=== PATIENT | female | born 1990 | race Caucasian/White ===

== ENCOUNTER 2016-08-03 13:34 | Emergency (ER) | payer OTHER ==
[~2016-08-03 13:34] MED LIST: AMOXICILLIN PO; BACTRIM DS TABL1 TA1 PO; BACTRIM DS TABL1 TAB PO; FLAGYL PO; FLEXERIL10 MG PO; FLINTSTONES M200 MCG PO; ILOTYCIN1 GM OP; MACROBID100 M1 PO; MACROBID100 MG PO; METRONIDAZOLE PO; NO MEDICATIONS; NORCO1 TAB 10/3 PO; OMEPRAZOLE20 M2 PO; PHENERGAN PO; PHENERGAN12.5 MG PO; PRENATAL1 TA1 PO; PYRIDIUM PO; TYLENOL #3 PO; ZOFRAN ODT4 MG PO; ZOFRAN PO
== END 2016-08-03 14:49 | disposition home or self-care (01) ==
LOC: SED 13:34
DX: H10.33 Unspecified acute conjunctivitis, bilateral (principal)
CPT/HCPCS: 99283

== ENCOUNTER 2016-08-20 16:47 | Emergency (ER) | payer OTHER | END 2016-08-20 17:14 | disposition home or self-care (01) | LOC: SED 16:47 | DX: H10.9 Unspecified conjunctivitis (principal) | CPT/HCPCS: 99282 ==

== ENCOUNTER 2016-09-28 16:12 | Emergency (ER) | payer OTHER | END 2016-09-28 16:44 | disposition home or self-care (01) | LOC: SED 16:12 | DX: H10.32 Unspecified acute conjunctivitis, left eye (principal) | CPT/HCPCS: 99282 ==

== ENCOUNTER 2016-11-16 13:52 | Emergency (ER) | payer OTHER | END 2016-11-16 14:52 | disposition home or self-care (01) | LOC: SED 13:52 | DX: H10.31 Unspecified acute conjunctivitis, right eye (principal) | CPT/HCPCS: 87070; 87186; 87205; 99283 ==

== ENCOUNTER 2017-01-01 18:58 | Emergency (ER) | payer OTHER ==
[~2017-01-01] VITALS: Ht 157.5 cm; Wt 51.2 kg
[2017-01-01 19:31] LABS: URINE SOURCE CLEAN CATCH
[2017-01-01 19:33] LABS: URINE APPEARANCE HAZY; URINE BILIRUBIN NEG (NEG); URINE BLOOD 2+ (NEG); URINE COLOR YELLOW; URINE GLUCOSE NEG (NORM); URINE KETONE NEG (NEG); URINE LEUKOCYTE ESTERASE 2+ (NEG); URINE NITRATE POS (NEG); URINE PROTEIN NEG (NEG); URINE UROBILINOGEN 0.2 MG/DL (NORM)
[2017-01-01 19:35] LABS: MICRO INDICATED? YES
[2017-01-01 19:36] LABS: URINE BACTERIA 1+ (NEG); URINE MUCUS PRESENT; URINE SQUAMOUS EPITHELIAL CELL FEW /[HPF]; URINE WBC 50-100 /[HPF] (0-5)
== END 2017-01-01 19:50 | disposition home or self-care (01) ==
LOC: SED 18:58
PROVIDERS: Emergency Medicine
DX: N39.0 Urinary tract infection, site not specified (principal); Z98.890 Other specified postprocedural states
CPT/HCPCS: 81003; 84703; 87086; 87088; 87186; 99283